=== PATIENT | male | born 1940 | race Caucasian/White ===

== ENCOUNTER → 2016-07-03 | Outpatient (CLI) | payer MEDICARE, OTHER ==
[~2016-07-03] MED LIST: ACETAMINOPHEN; ACETAMINOPHEN325 M2 PO; ADVAIR 250/501 EA INH; ADVAIR 500/501 E1 INH; ADVAIR DISKUS 51 DSK; AMBIEN10 M1 PO; AMBIEN10 MG PO; AMBIEN5 MG PO; ATIVAN0.5 MG PO; AUGMENTIN 875 M1 TA1 PO; BAYER ASPIRIN R81 MG PO; CARDIZEM CD300 MG PO; CLARITIN10 MG PO; COLACE100 MG PO; COREG6.25 MG PO; COUMADIN2.5 M1 PO; COUMADIN4 M1 PO; COZAAR50 M1 PO; CRESTOR5 MG PO; FEROSUL325 MG PO; FERROUS SULFAT325 MG PO; GABAPENTIN100 M2 PO; GLUCOPHAGE500 M1 PO; HYDROCHLOROTH12.5 MG; HYDROCODONE BIT1 T11 PO; IMDUR SA30 MG PO; IMDUR30 MG; ISOSORBIDE MONO60 MG; K-DUR; K-DUR 20MEQ20 MEQ PO; LASIX40 MG PO; LASIX80 MG PO; LEVAQUIN750 M1 PO; LEVOFLOXACIN500 MG PO; LIPITOR10 MG PO; LISINOPRIL10 MG PO; LISINOPRIL5 MG PO; LOPRESSOR25 MG PO; LOPRESSOR50 M1 PO; LOPRESSOR50 MG PO; METFORMIN; METFORMIN500 MG PO; METOPROLOL; METOPROLOL50 MG PO; MIRALAX17 GM/DOSE PO; MUCINEX600 MG PO; MULTIPLE VITAMI1 CAP PO; MULTIVITAMIN &1 TAB PO; Metolazone5 MG PO; NATURE'S BLEND F1 MG PO; NEURONTIN100 MG PO; NITROSTAT0.4 MG; NITROSTAT0.4 MG SL; OXYGEN; POTASSIUM CHLO10 ME4 PO; POTASSIUM CHLO20 ME3 PO; POTASSIUM20 MEQ PO; PREDNISONE10 MG PO; PRILOSEC20 MG PO; PROAIR HFA0.09 MG/AC; PROAIR HFA0.09 MG/AC IH; PROAIR HFA0.09 MG/AC INH; PROAIR HFA8.5 GM INH; SINGULAIR10 MG PO; SPIRIVA; SPIRIVA18 MCG INH; TOPROL XL25 MG PO; TOPROL XL50 MG PO; TYLOPHEN500 M2 PO; V C FORTE PO; VICODIN 5/500 505 MG PO; VITAMIN D PO; VITAMIN D50000 I2 PO; VITAMIN D50000 I3 PO; VITAMINS; ZETIA10 MG PO; ZOLPIDEM10 M1; Zaroxolyn,Diul2.5 MG PO
== END | disposition home or self-care (01) ==
LOC: RAD 15:23
DX: G47.00 Insomnia, unspecified (principal); R31.9 Hematuria, unspecified; M54.5 Low back pain; K59.09 Other constipation; E11.9 Type 2 diabetes mellitus without complications; I10 Essential (primary) hypertension; J43.9 Emphysema, unspecified; Z96.643 Presence of artificial hip joint, bilateral

== ENCOUNTER 2016-07-09 21:52 | Emergency (ER) | payer MEDICARE, OTHER ==
[~2016-07-09] VITALS: Ht 170.1 cm; Wt 91.6 kg
[2016-07-09 22:01] VITALS: BP 126/93
[2016-07-09 22:52] LABS: HEMATOCRIT 36.9 % (42.0-52.0); HEMOGLOBIN 11.7 g/dl (14.0-18.0); MEAN CELL VOLUME 79.7 fl (80.0-94.0); MEAN CORPUSCULAR HGB 25.3 pg (27.0-31.0); MEAN CORPUSCULAR HGB CONC 31.7 g/dl (33.0-37.0); MEAN PLATELET VOLUME 8.9 fl (9.6-12.3); PLATELET COUNT AUTOMATED 342 10*3/uL (130-400); RED BLOOD COUNT 4.63 10*6/uL (4.50-5.90); RED CELL DISTRI WIDTH 14.9 % (0-14.5); WHITE BLOOD COUNT 14.2 10*3/uL (4.8-10.8)
[2016-07-09 23:08] LABS: ALBUMIN 3.5 gm/dl (3.1-4.5); ALKALINE PHOSPHATASE 98 U/L (45-117); BILIRUBIN, TOTAL 0.7 mg/dl (0.2-1.0); BUN 16 mg/dl (7-24); CARBON DIOXIDE 28 mmol/L (21-32); CHLORIDE 97 mmol/L (98-107); EST GLOM FILT AFRICAN AMERICAN > 60 ml/min; GLUCOSE 100 mg/dL (65-99); POTASSIUM 4.3 mmol/L (3.5-5.1); SGOT/AST 23 IU/L (3-35); SGPT/ALT 29 U/L (12-78); SODIUM 136 mmol/L (136-145); TOTAL PROTEIN 7.4 gm/dL (6.4-8.2)
[2016-07-09 23:14] LABS: EOSINOPHIL # 0.4 10*3/uL (0-0.4); EOSINOPHILS 3 % (1-4); LYMPHOCYTE # 2.7 10*3/uL (1.3-4.4); MONOCYTE # 0.9 10*3/uL (0.1-1.0); NEUTROPHIL # 10.2 10*3/uL (2.3-7.9); NEUTROPHILS 72 % (47-73); PLATELET SUFFICIENCY NORMAL (NORMAL); TOTAL CELLS COUNTED 100 #CELLS
[2016-07-09 23:28] LABS: BILIRUBIN NEGATIVE (NEGATIVE); BLOOD TRACE-INTACT (NEGATIVE); CLARITY SL CLOUDY (CLEAR); COLOR YELLOW (YELLOW); GLUCOSE NEGATIVE (NEGATIVE); KETONE NEGATIVE (NEGATIVE); LEUKO ESTERASE NEGATIVE (NEGATIVE); NITRITE NEGATIVE (NEGATIVE); PH 5.5 (5.0-9.0); PROTEIN NEGATIVE (NEGATIVE); SPECIFIC GRAVITY 1.015 (1.005-1.030); UROBILINOGEN 0.2 E.U./dl (0.2-1.0)
[2016-07-09 23:36] LABS: WBC 0-2 wbc/hpf (0-5)
[2016-07-09 23:37] LABS: MUCOUS TRACE
[2016-07-09 23:38] LABS: URINE REFLEX COMMENT NO (NO)
== END 2016-07-10 01:19 | disposition home or self-care (01) ==
LOC: ED 21:52
PROVIDERS: Physician Assistant
DX: K59.00 Constipation, unspecified (principal); Z88.6 Allergy status to analgesic agent; Z79.82 Long term (current) use of aspirin; Z79.899 Other long term (current) drug therapy

== ENCOUNTER 2016-07-21 12:16 | Inpatient (IN) | payer MEDICARE, OTHER ==
[~2016-07-21] VITALS: Ht 170.1 cm; Wt 88.6 kg
--- NOTE | ~2016-07-21 | PR ---
[place], [place] PROGRESS NOTE NAME: JODIE BARCENAS JR [facility] #: [id number] UNIT #: [id number] ROOM: 407 DOCTOR: CLARIBEL HOOD MD,PARVEZ BIRTHDATE: [birth year] DOS: 07/24/2016 PULMONARY PROGRESS NOTE SUBJECTIVE: The patient was seen and examined on 07/24/2016. The patient has been sitting on the chair. The chest and the right side of the patient has been noted decreased gradually. He has not been reported with any symptoms of hemoptysis. The coughing has been noted for this patient with intermittent sputum expectoration. OBJECTIVE: VITAL SIGNS: For the patient, which has been recorded showed the temperature of the patient noted as normal. The respiratory rate of the patient recorded as 16-25, heart rate 70-100, blood pressure 166/86-185/99. Intake is 3600 mL, output 3400 mL, pulse oxygen saturation 5 liters nasal canula 92% saturation recorded. HEENT: Examination shows head was atraumatic. Eyes nonicterus. NECK: Supple. CARDIOVASCULAR: S1, S2 audible. LUNGS: The patient was noted with decreased breath sounds noted in the lower portion of the lungs bilaterally with questionable crackles. ABDOMEN: Soft, nontender. LABORATORY DATA: Sputum culture of the patient from 07/22/2016 shows normal quynh. Urine culture of the patient showed no bacterial growth. Chest x-ray done this morning shows bilateral pleural fluids were noted with basilar area of atelectasis. The fluid for the patient appeared to be greater on the left than the right side. IMPRESSION: The ultrasound of the chest was performed for the patient at the bedside. Small to moderate sized pleural fluid was noted in the left side and small right-sided pleural fluids were noted. The finding correlated with the current chest x-ray assessment. IMPRESSION: 1. The patient with acute on chronic hypoxic respiratory failure. 2. Acute bilateral bacterial pneumonia. 3. T10 atraumatic compression fracture. 4. The patient with acute exacerbation of chronic obstructive pulmonary disease. 5. Pleural fluid for the patient, most likely related to the current infection, pneumonia and possibility of congestive heart failure with fluid overload. PLAN OF TREATMENT: Conservative treatment for the patient at this time for the pleural fluid will be continued. Diuretic therapy for the patient will be given as Lasix. Monitor respiratory status closely. Continue antibiotics for this patient; however, the adjustment in antibiotic will be done with discontinuation of the vancomycin and Levaquin at this time because of the lack of any cultures supporting the use. Other supportive plan and management as well. Usual treatment, all other care. Further treatment changes will be done based on [place], [place] PROGRESS NOTE NAME: JODIE BARCENAS JR UNIT #: [id number] ROOM: 407 DOCTOR: CLARIBEL HOOD MD,PARVEZ BIRTHDATE: [birth year] progression of the illness. Conservative treatment initially for the pleural fluid will be done, if necessary, thoracentesis could be performed. In case of any progression of the pleural fluid and no response to the current treatment, diuretics. PARVEZ SANFORD MD CM:PNTRANS [id number] PARVEZ HOOD MD 07/25/16 0327 interface
--- NOTE | ~2016-07-21 | PR ---
[place], [place] PROGRESS NOTE NAME: JODIE BARCENAS JR [facility] #: [id number] UNIT #: [id number] ROOM: 407 DOCTOR: CLARIBEL HOOD MD,PARVEZ BIRTHDATE: [birth year] DOS: 07/27/2016 PULMONARY PROGRESS NOTE SUBJECTIVE: He has been noted comfortably sitting on the chair. Still complaining of some pain and spasm for the patient in the chest. The patient has been assessed by the surgery staff for the assessment of possibility of cholecystitis because of recent cholelithiasis noted. The patient denies any symptoms of chest pain. The patient noted with absence of chest pain at this time. He has been ordered a HIDA scan and the patient refused to get that done. He was not worried about the gallbladder and was also told by the surgeon that the gallbladder is not an issue at this time. The respiratory symptom harrison, the patient has been noted with gradual reduction in symptoms of shortness of breath. Denies symptoms of cough. OBJECTIVE: VITAL SIGNS: Shows a normal temperature, respiratory rate 20, heart rate 100, blood pressure 155/88. Pulse oxygen saturation of the patient recorded on 5 liters nasal cannula 92% saturation. Intake was 1300, the output was 3900 mL, negative 2.63 liters was noted. HEENT: Examination shows head was atraumatic. Eyes nonicterus. NECK: Supple. CARDIOVASCULAR: S1, S2 is audible. LUNGS: The patient was noted without any wheezing or crackles at the present time. Breath sounds still noted decreased in the lower portion of the lungs, but some improvement in air entry was noted. ABDOMEN: Soft and nontender. LABORATORY DATA: CBC this morning, WBC count 13.0, hemoglobin 11.4, hematocrit 37.0, platelet count 428,000. BMP of the patient this morning was noted normal BUN and creatinine. IMPRESSION: 1. The patient with gradual reduction and resolution of the acute on chronic hypoxic respiratory failure. 2. The patient with resolving acute exacerbation of chronic obstructive pulmonary disease as well. 3. Bilateral pleural fluid for the patient, which has been noted with gradual resolution. 4. T10 atraumatic compression fracture causing the current chest pain. PLAN OF TREATMENT: Continue diuretic, bronchodilators, monitoring the chest x-ray of the patient as well. Continue oxygen supplementation to maintain a saturation of 92% greater as well. Continue use of the CPAP from home settings for medical management of obstructive sleep apnea disorder or BiPAP from the hospital use. Repeat chest x-ray of the patient has been ordered to be done in the morning for reassessment of the pleural fluid and the resolving pulmonary infiltration. Continue anticoagulation for the patient as well. Electrolytes as well as BUN and creatinine. [place], [place] PROGRESS NOTE NAME: JODIE BARCENAS JR UNIT #: [id number] ROOM: 407 DOCTOR: PARVEZ BURKS MD BIRTHDATE: [birth year] PARVEZ SANFORD MD CM:PNVIRAL [id number] PARVEZ HOOD MD 07/28/16 0841 interface
--- NOTE | ~2016-07-21 | PR ---
[place], [place] PROGRESS NOTE NAME: JODIE BARCENAS JR UNIT #: [id number] ROOM: 407 DOCTOR: PARVEZ BURKS MD BIRTHDATE: [birth year] DOS: 07/25/2016 PULMONARY PROGRESS NOTE SUBJECTIVE: The patient has been noted comfortable at this time, sitting on the chair. Denies symptoms of chest pain or any abdominal pain. The patient has been continued on diuretic therapy from yesterday. Shortness of breath is improving. The coughing is resolving. Chest pain was noted better controlled. OBJECTIVE: VITAL SIGNS: Showed normal temperature, respiratory rate of 20, heart rate of 98, blood pressure 153/95. HEENT: Examination shows no acute change. NECK: Supple. CARDIOVASCULAR SYSTEM: S1, S2 is audible. LUNGS: The patient was noted without any wheezing or crackles at the present time. ABDOMEN: Soft and nontender. LABORATORY DATA: CBC today show WBC count 13.2, hemoglobin 12.4, hematocrit 39.2, platelet count was normal. The CMP for the patient was noted, glucose 128, BUN and creatinine was normal. Potassium 3.2. IMPRESSION: 1. Bilateral pleural fluid for the patient. 2. Hypokalemia. 3. Acute bacterial pneumonia. 4. Acute on chronic hypoxic respiratory failure with exacerbation of chronic obstructive pulmonary disease. 5. T12 compression fracture. PLAN OF TREATMENT: The patient has been given an extra dose of potassium supplement 40 mEq today. He will be continued on other previous treatment and plan of management. Usual care. Supportive therapy and plan of care as in progress. Repeat chest x-ray in the morning for the patient for reassessment of the pleural fluid. Ultrasound of the chest will be also performed if necessary to reassess the pleural fluid. Usual care. Other plan of management and therapies. Further treatment changes will be done based on the progression of the illness. [place], [place] PROGRESS NOTE NAME: JODIE BARCENAS JR UNIT #: [id number] ROOM: 407 DOCTOR: PARVEZ BURKS MD BIRTHDATE: [birth year] PARVEZ SANFORD MD CM:HERNANDEZ Lopez: 07/25/16 [id number] [id number] PARVEZ HOOD MD 07/26/16 0147 interface
--- NOTE | ~2016-07-21 | PR ---
[place], [place] PROGRESS NOTE NAME: JODIE BARCENAS JR [facility] #: [id number] UNIT #: [id number] ROOM: 407 DOCTOR: CLARIBEL HOOD MD,PARVEZ BIRTHDATE: [birth year] DOS: 07/26/2016 PULMONARY FOLLOWUP NOTE SUBJECTIVE: He has been noted with reduction in symptoms of shortness of breath, was complaining of cough, which has been noted mild to moderate with minimal sputum expectoration, complaining of pain under ribcage for this patient with coughing at times. He denies symptoms of abdominal pain, nausea or vomiting. OBJECTIVE: VITAL SIGNS: For the patient, which has been recorded shows the temperature of the patient noted as normal, respiratory rate 20, heart rate of 99, blood pressure 162/89-142/69. Intake for the patient was recorded as ____. The pulse oxygen saturation of the patient was noted as 91% to 92% on 5 L nasal cannula. HEENT: Examination shows no acute change. NECK: Supple. CARDIOVASCULAR: S1, S2 audible. LUNGS: Noted without any wheezing or crackles at the present time. The breath sounds noted somewhat decreased in the lower portion of the lungs. ABDOMEN: Soft and nontender. LABORATORY DATA: CBC of this morning, WBC count 13.8, hemoglobin 11.5, hematocrit 37.2 and platelet count of 407,000. The BMP for this patient this morning noted as normal BMP. The chest x-ray of the patient that was done this morning was personally reviewed shows resolving pleural fluid of the patient noted in the lungs bilaterally with significant reduction noted in left lung with improving aeration of the lungs. IMPRESSION: 1. The patient who has been currently treated for the medical management of acute bilateral pneumonia with acute on chronic hypercapnic/hypoxic respiratory failure, pleural fluids bilaterally, partially reduced, but not completely resolved for this patient. 2. Mild leukocytosis as well. 3. T10 atraumatic compression fracture of the spine with the back pain and muscle spasm. PLAN OF TREATMENT: Continue the current plan of management as in progress. The patient is responding to treatment. Continue oxygen supplementation to maintain a saturation with 92% or greater. Continue CPAP from the home settings. Other supportive therapy, plan of management and care. Usual treatment, other supportive plan and management and care. [place], [place] PROGRESS NOTE NAME: JODIE BARCENAS JR UNIT #: [id number] ROOM: 407 DOCTOR: PARVEZ BURKS MD BIRTHDATE: [birth year] PARVEZ SANFORD MD CM:PNVIRAL [id number] PARVEZ HOOD MD 07/27/16 0211 interface
--- NOTE | ~2016-07-21 | PR ---
[place], [place] PROGRESS NOTE NAME: JODIE BARCENAS JR UNIT #: [id number] ROOM: 407 DOCTOR: CLARIBEL HOOD MDPARVEZ BIRTHDATE: [birth year] DOS: 07/28/2016 PULMONARY FOLLOWUP SUBJECTIVE: The patient reported reduction in respiratory symptoms of coughing, shortness breath. Denies symptoms of chest pain. Denies abdominal pain, currently noted with the patient sitting on the chair this morning. OBJECTIVE: VITAL SIGNS: For the patient which has been recorded shows his temperature was noted as normal. The respiratory rate of the patient recorded as 18-21, heart rate of 89-75, blood pressure 111/73-153/70. Intake is 1600 mL, output 1500 mL recorded. Pulse oxygen saturation on 5 L nasal cannula was 95% saturation. HEENT: Examination shows head was atraumatic. Eyes nonicterus. CARDIOVASCULAR: S1, S2 is audible. LUNGS: The patient was noted with improving air entry of the lung with minimal crackles in the lung bases are noted bilaterally. ABDOMEN: Soft, nontender. EXTREMITIES: No edema. LABORATORY DATA: The patient's CBC this morning, WBC count 12.2, hemoglobin 11.6, hematocrit of 38.5. The platelet count was noted as 455,000, which was elevated. Chest x-ray of the patient that was done this morning, PA lateral view for the patient was reviewed personally, and it shows reduction of the infiltration. Improvement in the aeration of the patient was continued significantly as compared with the previous chest x-ray; however, the infiltration was still noted in the left lower lobe for the patient in the retrocardiac area not completely resolved, but certainly appeared to be decreased. IMPRESSION: 1. The patient with resolving acute respiratory failure. The patient with pleural fluid still noted with incomplete resolution and resolving acute pneumonia. 2. Acute on chronic hypoxic respiratory failure as well. 3. History of T10 compression fracture. PLAN OF TREATMENT: Continue current medical management of the patient as previously in progress without any changes. All other supportive therapy, plan and management as well. Usual care. Supportive care and plan of treatment as well. Usual treatment. [place], [place] PROGRESS NOTE NAME: JODIE BARCENAS JR UNIT #: [id number] ROOM: 407 DOCTOR: PARVEZ BURKS MD BIRTHDATE: [birth year] PARVEZ SANFORD MD CM:PNTRANS [phone] PARVEZ HOOD MD 07/29/16 015 interface
--- NOTE | ~2016-07-21 | PR ---
[place], [place] PROGRESS NOTE NAME: JODIE BARCENAS JR [facility] #: [id number] UNIT #: [id number] ROOM: [facility] DOCTOR: CLARIBEL HOOD MD,PARVEZ BIRTHDATE: [birth year] DOS: 07/23/2016 PULMONARY PROGRESS NOTE SUBJECTIVE: The patient was seen and examined on 07/23/2016. He has been noted with reduction of the chest pain of the patient using the heating pad. The ultrasound for this patient of the right upper quadrant was noted for this patient with cholelithiasis, without any evidence of acute cholecystitis. The patient denies any symptoms of hemoptysis. He has been noted with the cough with sputum expectoration. This morning, as the patient was seen, he was sitting on the chair. He has been continued on antibiotics and remains afebrile. OBJECTIVE: VITAL SIGNS: Showed normal temperature, respiratory rate of 20-22, heart rate 90-84, blood pressure ____. The pulse oxygen saturation of patient noted as 92% on 5 L nasal cannula. HEENT: Examination shows no acute change. NECK: Supple. CARDIOVASCULAR SYSTEM: S1, S2 audible. LUNGS: Noted with basilar crackles of the lungs. ABDOMEN: Soft, nontender. LABORATORY DATA: Ultrasound of the right upper quadrant for the patient was noted with cholelithiasis. The blood culture of the patient on showed no bacterial growth. Final culture results were pending. Gram stain of the sputum for the patient from yesterday, moderate white blood cells with few epithelial cells, gram-positive cocci, and budding yeast. Urine culture, no bacterial growth from the 7th. The CMP this morning, normal BUN and creatinine. The remaining electrolytes grossly normal. CBC on 07/23/2016, WBC count 14.3, hemoglobin 11.1, hematocrit 35.8, and platelet count of 417,000. IMPRESSION: 1. The patient with acute bilateral basilar pneumonia with [id number] hypoxic respiratory failure. 2. T10 compression fracture, atraumatic for this patient was noted as well. 3. The patient with history of coronary artery disease and other problems as well. 4. History of gastroesophageal reflux. PLAN OF TREATMENT: Continue current combination of pain medical management. Continue antibiotics, bronchodilators, monitor culture results of the sputum. Periodic monitoring chest x-ray as well to assess the progression of the pneumonia. Usual care. Other supportive therapy, plan of management. [place], [place] PROGRESS NOTE NAME: JODIE BARCENAS JR UNIT #: [id number] ROOM: [facility] DOCTOR: PARVEZ BURKS MD BIRTHDATE: [birth year] PARVEZ SANFORD MD CM:HERNANDEZ [id number] PARVEZ HOOD MD 07/24/16 1024 interface
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
--- NOTE | ~2016-07-21 | EKG ---
[place], [place] ELECTROCARDIOGRAM REPORT NAME: JODIE BARCENAS JR UNIT #: [id number] ROOM: 407 DOCTOR: UMANG ELDER MD BIRTHDATE: [birth year] DOS: 07/21/2016 TIME: 1242. FINDINGS: 1. Sinus tachycardia with heart rate of about 140. 2. Rightward axis. 3. Prolonged QT interval. 4. Abnormal electrocardiogram. UMANG ELDER MD CM:EKGRPT:ELECTROCARDIOGRAM REPORT [id number] 15 UMANG ELDER MD
--- NOTE | ~2016-07-21 | PR ---
[place], [place] PROGRESS NOTE NAME: JODIE BARCENAS JR [facility] #: [id number] UNIT #: [id number] ROOM: [facility] DOCTOR: CARLOS MANUEL HU MD BIRTHDATE: [birth year] DOS: 07/23/2016 SUBJECTIVE: The patient who has been admitted to the hospital with the community-acquired pneumonia. He is still having a lot of pain and difficulty in breathing. His blood culture and sensitivity did not grow any bacteria. Sputum culture and sensitivity grew normal quynh. Urine culture and sensitivity showed no bacteria. Ultrasound of the gallbladder shows the patient is having cholelithiasis without evidence of cholecystitis. MRSA is negative and his CBC today showed white count 14,300, hemoglobin 11.1, hematocrit is 35.8. Comprehensive metabolic profile is showing chloride 108, calcium 8.1, albumin 2.6, other values are normal. OBJECTIVE: VITAL SIGNS: His blood pressure is 156/79, pulse is 90, respirations , temperature 98.8. HEART: Regular. CHEST: Having few rhonchi with the crepitation. ABDOMEN: Soft. Rest of examination unremarkable. CARLOS MANUEL HU MD CM:PNTRANS [id number] CARLOS MANUEL HU MD 07/24/16 0119 interface
[2016-07-21 12:19] VITALS: BP 139/98
[2016-07-21 12:53] LABS: HEMATOCRIT 39.6 % (42.0-52.0); HEMOGLOBIN 12.4 g/dl (14.0-18.0); MEAN CELL VOLUME 80.2 fl (80.0-94.0); MEAN CORPUSCULAR HGB 25.1 pg (27.0-31.0); MEAN CORPUSCULAR HGB CONC 31.3 g/dl (33.0-37.0); MEAN PLATELET VOLUME 8.7 fl (9.6-12.3); PLATELET COUNT AUTOMATED 395 10*3/uL (130-400); RED BLOOD COUNT 4.94 10*6/uL (4.50-5.90); RED CELL DISTRI WIDTH 15.4 % (0-14.5); WHITE BLOOD COUNT 19.4 10*3/uL (4.8-10.8)
[2016-07-21 13:02] LABS: INTERNATIONAL NORM RATIO 1.2 (2.0-3.5); PROTHROMBIN TIME 12.6 SECONDS (9.0-12.4)
[2016-07-21 13:07] LABS: ABG BASE EXCESS -0.4 mmol/L (-2.0-2.0); ABG CO2 CONTENT 22.6 mmol/L (23-27); ABG HCO3 21.7 mmol/l (22-26); ABG TEMPERATURE 102.3 F (98.0-99.0); ARTERIAL BLOOD GAS PH 7.453 (7.35-7.45); ARTERIAL BLOOD GAS PO2 58.2 mmHg (80-90)
[2016-07-21 13:09] LABS: ALBUMIN 3.4 gm/dl (3.1-4.5); ALKALINE PHOSPHATASE 141 U/L (45-117); BILIRUBIN, TOTAL 1.4 mg/dl (0.2-1.0); BUN 11 mg/dl (7-24); CARBON DIOXIDE 27 mmol/L (21-32); CHLORIDE 98 mmol/L (98-107); CKMB 0.9 ng/ml (0.5-3.6); CPK 65 U/L (39-308); EST GLOM FILT AFRICAN AMERICAN > 60 ml/min; GLUCOSE 158 mg/dL (65-99); MAGNESIUM 2.1 mg/dL (1.5-2.1); POTASSIUM 4.2 mmol/L (3.5-5.1); SGOT/AST 15 IU/L (3-35); SGPT/ALT 21 U/L (12-78); SODIUM 135 mmol/L (136-145); TOTAL PROTEIN 7.9 gm/dL (6.4-8.2)
[2016-07-21 13:10] LABS: TROPONIN I < 0.015 ng/ml (<0.045)
[2016-07-21 13:14] LABS: LYMPHOCYTE # 0.6 10*3/uL (1.3-4.4); MONOCYTE # 0.8 10*3/uL (0.1-1.0); NEUTROPHILS 93 % (47-73); PLATELET SUFFICIENCY NORMAL (NORMAL); POLYCHROMASIA SLIGHT; TOTAL CELLS COUNTED 100 #CELLS
[2016-07-21 16:32] VITALS: BP 131/74
[2016-07-21 17:00] VITALS: BP 154/82
[2016-07-21] MEDS ORDERED: LIPITOR10 MG PO (19:59)
[2016-07-21 20:00] VITALS: BP 146/79
[2016-07-21] MEDS ORDERED: NEURONTIN300 MG PO (20:02)
[2016-07-21] MEDS ORDERED: COZAAR50 M1 PO (20:03)
[2016-07-21] MEDS ORDERED: OXYGEN NAS (20:15)
[2016-07-21] MEDS ORDERED: ONE DAILY FOR1 EAC2 PO (20:16)
[2016-07-21] MEDS ORDERED: LEVEMIR10 ML SC (20:23)
[2016-07-21 21:37] LABS: BILIRUBIN NEGATIVE (NEGATIVE); BLOOD TRACE-LYSED (NEGATIVE); CLARITY SL CLOUDY (CLEAR); COLOR YELLOW (YELLOW); GLUCOSE 2+ (NEGATIVE); KETONE 1+ (NEGATIVE); LEUKO ESTERASE NEGATIVE (NEGATIVE); NITRITE NEGATIVE (NEGATIVE); PROTEIN NEGATIVE (NEGATIVE); SPECIFIC GRAVITY <= 1.005 (1.005-1.030); UROBILINOGEN 0.2 E.U./dl (0.2-1.0)
[2016-07-21 21:43] LABS: BACTERIA 2+; EPITHELIAL CELLS 0-2; RBC 0-2 rbc/hpf (0-2); URINE REFLEX COMMENT YES (NO)
[2016-07-22] VITALS: BP 139/77
[2016-07-22 04:00] VITALS: BP 137/80
[2016-07-22 05:06] LABS: BASO % 0.1 % (0.0-1.0); HEMATOCRIT 35.4 % (42.0-52.0); IG # 0.3 10*3/uL (0.0-0.1); LYMPH # 1.1 10*3/uL (1.3-4.4); LYMPH % 6.4 % (27.0-41.0); MEAN CELL VOLUME 80.8 fl (80.0-94.0); MEAN CORPUSCULAR HGB 25.1 pg (27.0-31.0); MEAN CORPUSCULAR HGB CONC 31.1 g/dl (33.0-37.0); MEAN PLATELET VOLUME 9.1 fl (9.6-12.3); MONO # 1.1 10*3/uL (0.1-1.0); MONO % 6.2 % (3.0-9.0); NEUT # 14.7 10*3/uL (2.3-7.9); NEUT % 85.7 % (47.0-73.0); PLATELET COUNT AUTOMATED 336 10*3/uL (130-400); RED BLOOD COUNT 4.38 10*6/uL (4.50-5.90); RED CELL DISTRI WIDTH 15.1 % (0-14.5); WHITE BLOOD COUNT 17.2 10*3/uL (4.8-10.8)
[2016-07-22 05:15] LABS: MAGNESIUM 2.4 mg/dL (1.5-2.1); PHOSPHOROUS 2.5 mg/dL (2.5-4.9)
[2016-07-22 05:19] LABS: ALBUMIN 2.6 gm/dl (3.1-4.5); ALKALINE PHOSPHATASE 110 U/L (45-117); BILIRUBIN, TOTAL 0.8 mg/dl (0.2-1.0); BUN 12 mg/dl (7-24); CARBON DIOXIDE 25 mmol/L (21-32); CHLORIDE 106 mmol/L (98-107); EST GLOM FILT AFRICAN AMERICAN > 60 ml/min; GLUCOSE 168 mg/dL (65-99); POTASSIUM 3.7 mmol/L (3.5-5.1); SGOT/AST 10 IU/L (3-35); SGPT/ALT 15 U/L (12-78); SODIUM 140 mmol/L (136-145); TOTAL PROTEIN 6.6 gm/dL (6.4-8.2)
[2016-07-22 08:00] VITALS: BP 157/83
[2016-07-22 12:00] VITALS: BP 168/78
[2016-07-22 16:00] VITALS: BP 130/65
[2016-07-22 20:00] VITALS: BP 130/73
[2016-07-23] VITALS: BP 115/66
[2016-07-23 04:00] VITALS: BP 156/79
[2016-07-23 06:07] LABS: BASO % 0.1 % (0.0-1.0); EOS % 0.1 % (1.0-4.0); HEMATOCRIT 35.8 % (42.0-52.0); HEMOGLOBIN 11.1 g/dl (14.0-18.0); IG # 0.2 10*3/uL (0.0-0.1); LYMPH # 1.9 10*3/uL (1.3-4.4); LYMPH % 13.2 % (27.0-41.0); MEAN CELL VOLUME 81.9 fl (80.0-94.0); MEAN CORPUSCULAR HGB 25.4 pg (27.0-31.0); MEAN PLATELET VOLUME 9.2 fl (9.6-12.3); MONO # 1.2 10*3/uL (0.1-1.0); MONO % 8.1 % (3.0-9.0); NEUT # 11.1 10*3/uL (2.3-7.9); NEUT % 77.5 % (47.0-73.0); PLATELET COUNT AUTOMATED 417 10*3/uL (130-400); RED BLOOD COUNT 4.37 10*6/uL (4.50-5.90); RED CELL DISTRI WIDTH 15.3 % (0-14.5); WHITE BLOOD COUNT 14.3 10*3/uL (4.8-10.8)
[2016-07-23 06:20] LABS: ALBUMIN 2.6 gm/dl (3.1-4.5); ALKALINE PHOSPHATASE 107 U/L (45-117); BILIRUBIN, TOTAL 0.7 mg/dl (0.2-1.0); BUN 16 mg/dl (7-24); CARBON DIOXIDE 26 mmol/L (21-32); CHLORIDE 108 mmol/L (98-107); EST GLOM FILT AFRICAN AMERICAN > 60 ml/min; GLUCOSE 99 mg/dL (65-99); POTASSIUM 3.5 mmol/L (3.5-5.1); SGOT/AST 24 IU/L (3-35); SGPT/ALT 25 U/L (12-78); SODIUM 143 mmol/L (136-145); TOTAL PROTEIN 6.5 gm/dL (6.4-8.2)
[2016-07-23 08:00] VITALS: BP 156/79
[2016-07-23 12:00] VITALS: BP 125/71
[2016-07-23 16:00] VITALS: BP 160/81
[2016-07-23 20:00] VITALS: BP 166/82
[2016-07-24] VITALS: BP 147/85
[2016-07-24 04:00] VITALS: BP 166/86
[2016-07-24 08:00] VITALS: BP 185/99
[2016-07-24 12:00] VITALS: BP 120/58
[2016-07-24 16:00] VITALS: BP 115/87
[2016-07-24 20:00] VITALS: BP 154/77
[2016-07-25] VITALS: BP 120/70
[2016-07-25 06:39] LABS: HEMATOCRIT 39.2 % (42.0-52.0); HEMOGLOBIN 12.4 g/dl (14.0-18.0); MEAN CELL VOLUME 80.2 fl (80.0-94.0); MEAN CORPUSCULAR HGB 25.4 pg (27.0-31.0); MEAN CORPUSCULAR HGB CONC 31.6 g/dl (33.0-37.0); MEAN PLATELET VOLUME 8.7 fl (9.6-12.3); PLATELET COUNT AUTOMATED 458 10*3/uL (130-400); RED BLOOD COUNT 4.89 10*6/uL (4.50-5.90); RED CELL DISTRI WIDTH 15.2 % (0-14.5); WHITE BLOOD COUNT 13.3 10*3/uL (4.8-10.8)
[2016-07-25 06:49] LABS: HYPOCHROMIA SLIGHT; OVALOCYTES FEW; PLATELET SUFFICIENCY HIGH (NORMAL); POLYCHROMASIA SLIGHT
[2016-07-25 06:57] LABS: EOSINOPHIL # 0.1 10*3/uL (0-0.4); EOSINOPHILS 1 % (1-4); LYMPHOCYTE # 2.8 10*3/uL (1.3-4.4); MONOCYTE # 1.2 10*3/uL (0.1-1.0); MYELOCYTES 3 % (0-0); NEUTROPHIL # 8.8 10*3/uL (2.3-7.9); NEUTROPHILS 66 % (47-73); TOTAL CELLS COUNTED 100 #CELLS
[2016-07-25 07:11] LABS: ALBUMIN 2.8 gm/dl (3.1-4.5); CHLORIDE 106 mmol/L (98-107); POTASSIUM 3.2 mmol/L (3.5-5.1); SODIUM 140 mmol/L (136-145)
[2016-07-25 07:16] LABS: ALKALINE PHOSPHATASE 131 U/L (45-117); BILIRUBIN, TOTAL 0.6 mg/dl (0.2-1.0); BUN 13 mg/dl (7-24); CARBON DIOXIDE 28 mmol/L (21-32); EST GLOM FILT AFRICAN AMERICAN > 60 ml/min; GLUCOSE 128 mg/dL (65-99); SGOT/AST 21 IU/L (3-35); SGPT/ALT 34 U/L (12-78); TOTAL PROTEIN 7.1 gm/dL (6.4-8.2)
[2016-07-25 08:00] VITALS: BP 153/65
[2016-07-25 12:00] VITALS: BP 125/77
[2016-07-25 16:00] VITALS: BP 126/74
[2016-07-25 20:00] VITALS: BP 141/65
[2016-07-26] VITALS: BP 142/69
[2016-07-26 06:15] LABS: HEMATOCRIT 37.3 % (42.0-52.0); HEMOGLOBIN 11.5 g/dl (14.0-18.0); MEAN CELL VOLUME 80.9 fl (80.0-94.0); MEAN CORPUSCULAR HGB 24.9 pg (27.0-31.0); MEAN CORPUSCULAR HGB CONC 30.8 g/dl (33.0-37.0); MEAN PLATELET VOLUME 8.9 fl (9.6-12.3); PLATELET COUNT AUTOMATED 407 10*3/uL (130-400); RED BLOOD COUNT 4.61 10*6/uL (4.50-5.90); RED CELL DISTRI WIDTH 15.5 % (0-14.5)
[2016-07-26 06:47] LABS: BUN 12 mg/dl (7-24); CARBON DIOXIDE 28 mmol/L (21-32); CHLORIDE 108 mmol/L (98-107); EST GLOM FILT AFRICAN AMERICAN > 60 ml/min; GLUCOSE 98 mg/dL (65-99); POTASSIUM 3.9 mmol/L (3.5-5.1); SODIUM 142 mmol/L (136-145)
[2016-07-26 07:37] LABS: ATYPICAL LYMPHS 1 % (0-0); BASOPHIL # 0.1 10*3/uL (0-0.1); BASOPHILS 1 % (0-1); EOSINOPHIL # 0.3 10*3/uL (0-0.4); EOSINOPHILS 2 % (1-4); LYMPHOCYTE # 2.9 10*3/uL (1.3-4.4); MYELOCYTES 1 % (0-0); NEUTROPHIL # 8.6 10*3/uL (2.3-7.9); NEUTROPHILS 66 % (47-73); PLATELET SUFFICIENCY HIGH (NORMAL); POLYCHROMASIA SLIGHT; TOTAL CELLS COUNTED 100 #CELLS
[2016-07-26 08:00] VITALS: BP 162/89
[2016-07-26 12:00] VITALS: BP 132/83
[2016-07-26 16:00] VITALS: BP 128/73
[2016-07-26 20:00] VITALS: BP 138/62
[2016-07-27] VITALS: BP 138/65
[2016-07-27 06:48] LABS: HEMOGLOBIN 11.4 g/dl (14.0-18.0); MEAN CELL VOLUME 80.6 fl (80.0-94.0); MEAN CORPUSCULAR HGB 24.8 pg (27.0-31.0); MEAN CORPUSCULAR HGB CONC 30.8 g/dl (33.0-37.0); MEAN PLATELET VOLUME 8.6 fl (9.6-12.3); PLATELET COUNT AUTOMATED 428 10*3/uL (130-400); RED BLOOD COUNT 4.59 10*6/uL (4.50-5.90); RED CELL DISTRI WIDTH 15.4 % (0-14.5)
[2016-07-27 07:10] LABS: BUN 12 mg/dl (7-24); CARBON DIOXIDE 28 mmol/L (21-32); CHLORIDE 107 mmol/L (98-107); EST GLOM FILT AFRICAN AMERICAN > 60 ml/min; GLUCOSE 96 mg/dL (65-99); SODIUM 142 mmol/L (136-145)
[2016-07-27 07:14] LABS: ATYPICAL LYMPHS 1 % (0-0); EOSINOPHIL # 0.1 10*3/uL (0-0.4); EOSINOPHILS 1 % (1-4); LYMPHOCYTE # 2.6 10*3/uL (1.3-4.4); METAMYELOCYTES 1 % (0-0); MONOCYTE # 0.7 10*3/uL (0.1-1.0); MYELOCYTES 1 % (0-0); NEUTROPHIL # 9.4 10*3/uL (2.3-7.9); NEUTROPHILS 72 % (47-73); PLATELET SUFFICIENCY HIGH (NORMAL); TOTAL CELLS COUNTED 100 #CELLS
[2016-07-27 08:00] VITALS: BP 155/88
[2016-07-27 16:00] VITALS: BP 145/79
[2016-07-27 20:00] VITALS: BP 120/66
[2016-07-28] VITALS: BP 111/73
[2016-07-28 06:20] LABS: HEMATOCRIT 38.5 % (42.0-52.0); HEMOGLOBIN 11.6 g/dl (14.0-18.0); MEAN CELL VOLUME 81.1 fl (80.0-94.0); MEAN CORPUSCULAR HGB 24.4 pg (27.0-31.0); MEAN CORPUSCULAR HGB CONC 30.1 g/dl (33.0-37.0); MEAN PLATELET VOLUME 9.1 fl (9.6-12.3); PLATELET COUNT AUTOMATED 455 10*3/uL (130-400); RED BLOOD COUNT 4.75 10*6/uL (4.50-5.90); RED CELL DISTRI WIDTH 15.2 % (0-14.5); WHITE BLOOD COUNT 12.2 10*3/uL (4.8-10.8)
[2016-07-28 07:01] LABS: BASOPHIL # 0.1 10*3/uL (0-0.1); BASOPHILS 1 % (0-1); LYMPHOCYTE # 2.9 10*3/uL (1.3-4.4); METAMYELOCYTES 1 % (0-0); MYELOCYTES 1 % (0-0); NEUTROPHIL # 7.9 10*3/uL (2.3-7.9); NEUTROPHILS 65 % (47-73); TOTAL CELLS COUNTED 100 #CELLS
[2016-07-28 07:02] LABS: BURR CELLS FEW; PLATELET SUFFICIENCY HIGH (NORMAL)
[2016-07-28 08:00] VITALS: BP 153/70
[2016-07-28 12:00] VITALS: BP 114/63
[2016-07-28] MEDS ORDERED: CYCLOBENZAPRINE10 MG PO (13:41)
[2016-07-28] MEDS ORDERED: ACETAMINOPHEN-H1 TA2 PO (13:41)
[2016-07-28] MEDS ORDERED: PREDNISONE10 MG PO (13:41)
[2016-07-28] MEDS ORDERED: LEVAQUIN750 M1 PO (13:41)
== END 2016-07-28 16:10 | disposition home or self-care (01) | DRG 871 ==
LOC: ED 12:16 → ICCU 15:39 → EDHOLD 15:39 → ICCU 15:58 → 4E 07-24 14:28
PROVIDERS: Emergency Medicine; Internal Medicine
DX: A41.9 Sepsis, unspecified organism (principal); J69.0 Pneumonitis due to inhalation of food and vomit; J96.21 Acute and chronic respiratory failure with hypoxia; E44.0 Moderate protein-calorie malnutrition; J90 Pleural effusion, not elsewhere classified; J44.1 Chronic obstructive pulmonary disease with (acute) exacerbation; J44.0 Chronic obstructive pulmonary disease with (acute) lower respiratory infection; M48.54XA Collapsed vertebra, not elsewhere classified, thoracic region, initial encounter for fracture; R65.20 Severe sepsis without septic shock; N18.3 Chronic kidney disease, stage 3 (moderate); E11.22 Type 2 diabetes mellitus with diabetic chronic kidney disease; E11.65 Type 2 diabetes mellitus with hyperglycemia; D64.9 Anemia, unspecified; K80.80 Other cholelithiasis without obstruction; I25.10 Atherosclerotic heart disease of native coronary artery without angina pectoris; K21.9 Gastro-esophageal reflux disease without esophagitis; E78.5 Hyperlipidemia, unspecified; I12.9 Hypertensive chronic kidney disease with stage 1 through stage 4 chronic kidney disease, or unspecified chronic kidney disease; Z96.643 Presence of artificial hip joint, bilateral; E87.6 Hypokalemia; I25.5 Ischemic cardiomyopathy; E66.8 Other obesity; Z95.1 Presence of aortocoronary bypass graft; Z82.49 Family history of ischemic heart disease and other diseases of the circulatory system; Z88.5 Allergy status to narcotic agent; Z79.899 Other long term (current) drug therapy; Z83.3 Family history of diabetes mellitus; Z68.31 Body mass index [BMI] 31.0-31.9, adult; Z87.891 Personal history of nicotine dependence

== ENCOUNTER → 2016-07-31 | Outpatient (CLI) | payer MEDICARE, OTHER ==
[~2016-07-31] MED LIST changes: +ACETAMINOPHEN-H1 TA2 PO; +CYCLOBENZAPRINE10 MG PO; +LEVEMIR10 ML SC; +NEURONTIN300 MG PO; +ONE DAILY FOR1 EAC2 PO; +OXYGEN NAS
== END | disposition home or self-care (01) ==
LOC: RAD 12:51
DX: J44.9 Chronic obstructive pulmonary disease, unspecified (principal); J18.9 Pneumonia, unspecified organism; J90 Pleural effusion, not elsewhere classified

== ENCOUNTER → 2016-08-07 | Outpatient (CLI) | payer MEDICARE, OTHER | END | disposition home or self-care (01) | LOC: RAD 01:57 | DX: M48.50XA Collapsed vertebra, not elsewhere classified, site unspecified, initial encounter for fracture (principal) ==

== ENCOUNTER → 2016-08-18 | Outpatient (CLI) | payer MEDICARE, OTHER ==
[~2016-08-18] MED LIST changes: +PRILOSEC20 M1 PO
--- NOTE | ~2016-08-18 | ST ---
[place], [place] EXERCISE STRESS TEST REPORT NAME: JODIE BARCENAS JR [facility] #: [id number] UNIT #: [id number] ROOM: DOCTOR: BHUMI MONREAL MD BIRTHDATE: [birth year] DOS: 08/18/2016 LEXISCAN STRESS EKG REFERRING PHYSICIAN: Dr. Lazaro Adler INDICATION: Chest pain, shortness of breath, CAD, preop. The patient underwent standard protocol Lexiscan stress EKG. The patient's baseline EKG showed normal sinus rhythm, nonspecific ST-T wave changes and PVCs. The patient's baseline heart rate was 85 with a blood pressure of 140/98. The patient's peak heart rate was 115 with a blood pressure of 118/60. The patient had no chest pain, no shortness of breath and no inducible ischemic changes. SUMMARY OF FINDINGS: Unremarkable Lexiscan stress EKG. Please see separate report for perfusion scan results. BHUMI MONREAL MD CM:STRESS:EXERCISE STRESS TEST REPORT [id number] BHUMI MONREAL MD
== END | disposition home or self-care (01) ==
LOC: CARD 02:44
DX: Z01.810 Encounter for preprocedural cardiovascular examination (principal); R06.02 Shortness of breath; I25.10 Atherosclerotic heart disease of native coronary artery without angina pectoris; J44.9 Chronic obstructive pulmonary disease, unspecified; E11.9 Type 2 diabetes mellitus without complications; E78.01 Familial hypercholesterolemia; I10 Essential (primary) hypertension

== ENCOUNTER → 2016-11-14 | Outpatient (CLI) | payer MEDICARE, OTHER | END | disposition home or self-care (01) | LOC: US 02:20 | DX: K80.20 Calculus of gallbladder without cholecystitis without obstruction (principal) ==

== ENCOUNTER → 2017-04-13 | Outpatient (CLI) | payer MEDICARE, OTHER | END | disposition home or self-care (01) | LOC: US 14:04 | DX: R60.0 Localized edema (principal); I73.9 Peripheral vascular disease, unspecified ==

== ENCOUNTER → 2017-04-25 | Outpatient (CLI) | payer MEDICARE, OTHER | END | disposition home or self-care (01) | LOC: CARD 01:16 | DX: I34.8 Other nonrheumatic mitral valve disorders (principal) ==

== ENCOUNTER → 2017-06-18 | Outpatient (CLI) | payer MEDICARE, OTHER ==
[2017-06-18 08:23] LABS: BASO # 0.1 10*3/uL (0.0-0.1); BASO % 0.6 % (0.0-1.0); EOS # 0.3 10*3/uL (0.0-0.4); EOS % 2.8 % (1.0-4.0); HEMATOCRIT 40.9 % (42.0-52.0); HEMOGLOBIN 12.2 g/dl (14.0-18.0); LYMPH # 3.6 10*3/uL (1.3-4.4); LYMPH % 31.5 % (27.0-41.0); MEAN CELL VOLUME 78.8 fl (80.0-94.0); MEAN CORPUSCULAR HGB 23.5 pg (27.0-31.0); MEAN CORPUSCULAR HGB CONC 29.8 g/dl (33.0-37.0); MEAN PLATELET VOLUME 10.1 fl (9.6-12.3); MONO # 1.3 10*3/uL (0.1-1.0); MONO % 11.3 % (3.0-9.0); NEUT # 6.1 10*3/uL (2.3-7.9); NEUT % 52.8 % (47.0-73.0); PLATELET COUNT AUTOMATED 346 10*3/uL (130-400); RED BLOOD COUNT 5.19 10*6/uL (4.50-5.90); RED CELL DISTRI WIDTH 15.9 % (0-14.5); WHITE BLOOD COUNT 11.5 10*3/uL (4.8-10.8)
[2017-06-18 08:30] LABS: CHLORIDE 102 mmol/L (98-107); POTASSIUM 3.3 mmol/L (3.5-5.1); SODIUM 140 mmol/L (136-145)
[2017-06-18 08:43] LABS: ALBUMIN 3.7 gm/dl (3.1-4.5); ALKALINE PHOSPHATASE 140 U/L (45-117); BUN 15 mg/dl (7-24); CHOLESTEROL 135 mg/dL (<200); CREATININE 1.28 mg/dL (0.70-1.30); FREE T4 1.09 ng/dl (0.76-1.46); HDL CHOLESTEROL 49 mg/dl (40-60); LDH 177 U/L (87-241); LDL CHOLESTEROL 47 mg/dL (9-159); SGOT/AST 16 IU/L (3-35); SGPT/ALT 18 U/L (12-78); TOTAL PROTEIN 7.9 gm/dL (6.4-8.2); TRIGLYCERIDES 195 mg/dl (<150); VLDL CHOLESTEROL 39 mg/dL (6-40)
[2017-06-18 09:06] LABS: VITAMIN D, 25-HYDROXY 27.4 ng/mL (30-100)
== END | disposition home or self-care (01) ==
LOC: LAB 02:08
PROVIDERS: Family Medicine Geriatric Medicine
DX: Z12.5 Encounter for screening for malignant neoplasm of prostate (principal); E11.9 Type 2 diabetes mellitus without complications; J44.9 Chronic obstructive pulmonary disease, unspecified; I10 Essential (primary) hypertension; J43.9 Emphysema, unspecified; Z72.89 Other problems related to lifestyle

== ENCOUNTER 2017-08-03 15:08 | Inpatient (IN) | payer MEDICARE, OTHER ==
[~2017-08-03] VITALS: Ht 170.1 cm; Wt 92.5 kg
--- NOTE | ~2017-08-03 | PR ---
[place], [place] PROGRESS NOTE NAME: JODIE BARCENAS JR [facility] #: [id number] UNIT #: [id number] ROOM: [facility] DOCTOR: CARLOS MANUEL HU MD BIRTHDATE: [birth year] DOS: SUBJECTIVE: The patient has been admitted to hospital with acute respiratory distress, history of COPD, emphysema and came to Emergency Department from where he was admitted to the hospital. The patient has been seen by Dr. Motley, head piece assembler and according to his impression, the patient will be ____ and significant leukocytosis and acute bronchitis without evidence of pneumonia, ____ chronic obstructive pulmonary disease, [id number] hypoxic respiratory failure, history of obstructive sleep apnea, type 2 diabetes mellitus. He has put patient on the antibiotic without any changes and supportive therapy. He was put on Solu-Medrol and BiPAP. His ASA MRSA is negative. His sputum culture and sensitivity did not grow any bacteria. B12 and folic acid are normal. Hemoglobin A1c is 8.1. OBJECTIVE: VITAL SIGNS: His blood pressure is 116/64, pulse 90, respirations 23, temperature 97.5 and he is having 97% oxygen on BiPAP. HEART: Regular. CHEST: Having increased expiration. No crepitation. CARLOS MANUEL HU MD CM:PNTRANS [id number] [id number] CARLOS MANUEL HU MD 08/05/17 1020 interface
--- NOTE | ~2017-08-03 | PR ---
[place], [place] PROGRESS NOTE NAME: JODIE BARCENAS JR UNIT #: [id number] ROOM: [facility] DOCTOR: UMANG ELDER MD BIRTHDATE: [birth year] DOS: 08/07/2017 CARDIOLOGY PROGRESS NOTE SUBJECTIVE: The patient was seen at his bedside today 08/07/2017 for followup of his multifocal atrial tachycardia. He is a 76-year-old man with a history of atherosclerotic heart disease and obstructive lung disease, who presented to the hospital on this occasion with acute on chronic hypoxic and hypercapnic respiratory failure. He states that he had a fever and he was noted to have an elevated white count along with cough and dyspnea. We were consulted because of an irregular tachycardia and my review of his rhythm strips suggested that he did have multifocal atrial tachycardia. He was started on verapamil yesterday and his rates have been much better controlled. PHYSICAL EXAMINATION: VITAL SIGNS: Today, his pulse is 88 and regular with occasional premature beats. Blood pressure is 120/68. He is afebrile. He weighs 92.5 kg and has a body mass index of 32. NECK: Supple. He has no jugular distention. Carotids are full. LUNGS: Respirations are unlabored at rest. He has decreased breath sounds with expiratory prolongation bilaterally, but no wheezes or rales. He has no presacral edema. HEART: Has a regular rhythm with occasional premature beats. ABDOMEN: Obese, but otherwise benign. EXTREMITIES: Showed 1+ edema bilaterally. IMPRESSION: 1. Multifocal atrial tachycardia. 2. Acute exacerbation of chronic lung disease. 3. Chronic hypoxemic and hypercarbic respiratory failure. 4. History of coronary artery disease status post bypass surgery in 2012. 5. Hyperlipidemia. 6. Obstructive sleep apnea. PLAN: We will continue to follow the patient in the hospital. No other cardiac workup is planned at this time. The dose of verapamil will be adjusted as needed, but I presume that as his lungs improve his arrhythmias will as well. We thank Dr. Allen for asking our advice regarding management of this patient. [place], [place] PROGRESS NOTE NAME: JODIE BARCENAS JR UNIT #: [id number] ROOM: [facility] DOCTOR: UMANG ELDER MD BIRTHDATE: [birth year] UMANG ELDER MD CM:PNVIRAL [phone] UMANG ELDER MD 08/07/17 1552 interface
--- NOTE | ~2017-08-03 | PR ---
[place], [place] PROGRESS NOTE NAME: JODIE BARCENAS JR [facility] #: [id number] UNIT #: [id number] ROOM: [facility] DOCTOR: CLARIBEL HOOD MD,PARVEZ BIRTHDATE: [birth year] DOS: 08/08/2017 SUBJECTIVE: The patient is transferred from the Intensive Care Unit to medical floor. The patient has been noted with increased hypoxia and shortness of breath, unable to titrate the patient with the nasal cannula high flow. He was transferred to the Intensive Care Unit. In the Intensive Care Unit, the patient was started on Optiflow high flow nasal cannula supplementation of oxygen. The patient was currently getting 50% oxygen supplementation to maintain pulse ox saturation 97% at rest. He has been sitting on the chair. Denies symptoms of chest pain. He does have symptoms of wheezing. There were no symptoms of hemoptysis. Denies symptoms of nausea or vomiting. Denies any pain or edema of the lower extremities. Remaining systems were reviewed for the patient, they were noted all negative. OBJECTIVE: VITAL SIGNS: For the patient, which has been recorded showed normal temperature, respiratory rate 18-24, heart rate 109-101, blood pressure 128/73-137/53. The pulse oxygen saturation of the patient noted on 10 liters high flow nasal cannula yesterday was 94%. This morning, oxygen supplementation with 50% Optiflow of oxygen, the patient was noted with 94-97% saturation. HEENT: Head atraumatic. Eyes nonicterus. CARDIOVASCULAR: S1, S2 is audible. LUNGS: The patient was noted with moderate decreased breath sounds with expiratory wheezing. There were no crackles heard. ABDOMEN: Soft, nontender. EXTREMITIES: The patient noted without any acute edema. SKIN: Visible skin, no lesions or rashes. MUSCULOSKELETAL SYMPTOMS: Without any acute deformities. CENTRAL NERVOUS SYSTEM: Cranial nerves 2-12 intact. No focal deficit. LABORATORY DATA: CMP of the patient this morning, BUN 33, creatinine 1.41, glucose 137. The CBC of the patient this morning, WBC count 19.6, hemoglobin 12.2, hematocrit 40.2, platelets 452,000. Arterial blood gas on 50% oxygen was ordered this morning on Optiflow of oxygen, pH of 7.43, pCO2 of 41, pO2 73. Troponin 2 sets, which was done was noted as negative. IMAGING STUDIES: Chest x-ray, 1 view, which was done at 3:28 a.m. was noted without any acute pulmonary infiltration, small area of atelectasis in the left lower lung remains. IMPRESSION: 1. The patient with ongoing acute exacerbation of chronic obstructive pulmonary disease with increased wheezing noted at this time with worsening of the hypoxia, currently responding to treatment. 2. Acute tracheobronchitis as well. 3. Atrial fibrillation, currently noted with controlled range. PLAN OF TREATMENT: Continuation of the Optiflow of oxygen. BiPAP to be used at nighttime and p.r.n. during the day for respiratory distress at the time of using Optiflow for oxygen supplementation. Bronchodilators. Increase the [place], [place] PROGRESS NOTE NAME: JODIE BARCENAS JR UNIT #: [id number] ROOM: [facility] DOCTOR: CLARIBEL HOOD MD,PARVEZ BIRTHDATE: [birth year] corticosteroids again to 40 mg b.i.d. dosing because of increased bronchospasm and hypoxia. There were no signs of active infection or pneumonia. At the present time, leukocytosis was observed for the patient most likely related to the use of the corticosteroids. The patient was given one dose of 125 mg Solu-Medrol ____ at the time of respiratory distress at 3:20 a.m. PARVEZ SANFORD MD CM:PNTRANS [id number] PARVEZ HOOD MD 08/09/17 0338 interface
--- NOTE | ~2017-08-03 | PR ---
[place], [place] PROGRESS NOTE NAME: JODIE BARCENAS JR [facility] #: [id number] UNIT #: [id number] ROOM: [facility] DOCTOR: PARVEZ BURKS MD BIRTHDATE: [birth year] DOS: 08/09/2017 SUBJECTIVE: The patient has been noted comfortable at this time, used the BiPAP last night and still using BiPAP this morning. He is currently requiring oxygen supplementation 65% with the use of the BiPAP. Pulse ox saturation was recorded as 97% saturation remained in the Intensive Care Unit. He has been noted with reduction in symptoms of shortness of breath from yesterday. The cough has been noted minimal. There was no wheezing. Denies chest pain or headache. Denies symptoms of nausea, vomiting, diarrhea, abdominal pain. Dysuria, suprapubic pain, hematuria. Denies any pain in the lower extremities. Remaining systems were reviewed with the patient, they were noted all negative. OBJECTIVE: VITAL SIGNS: For the patient recorded as a normal temperature, respiratory 20, heart rate of 88, blood pressure 138/70. HEAD, EYES, EARS, NOSE, AND THROAT: Showed no new change. Head was atraumatic. NECK: Supple. CARDIOVASCULAR SYSTEM: S1, S2 is audible. LUNGS: The patient was noted without any crackles, rhonchi. ____ was noted, [id number], which is improving. ABDOMEN: Moderate obesity. Bowel sounds present. EXTREMITIES: The patient noted without any acute edema. MUSCULOSKELETAL SYMPTOM: The patient was noted without any acute deformities. SKIN: Noted without any lesions or rashes. GENITOURINARY: Nonfocal. LABORATORY DATA: CBC today: WBC count was noted with elevation of WBC count 28, hemoglobin 11.9, hematocrit 39.5, and platelet count 425,000. CMP: BUN 26, creatinine normal, glucose 206. IMPRESSION: 1. The patient with leukocytosis, which has been noted increase, probably related to corticosteroids. The patient does not have any GI symptoms to be concern for the possibility of Clostridium difficile colitis. 2. The patient with resolving acute on chronic hypoxic respiratory failure as well. The bronchodilators to be continued. Use of the BiPAP at nighttime. During daytime an oxygen supplementation, other time was be continued. PLAN OF TREATMENT: Continue current dose of corticosteroids. The wheezing was noted decreased. Stool for C. diff toxin was ordered for this patient in case of diarrhea that could be sent to the lab. Continue to monitor leukocytosis. Usual care, other supportive plan of management and care. Addition therapy changes to be made based on progression of the illness. [place], [place] PROGRESS NOTE NAME: SWAPNA JODIE SANCHEZ UNIT #: [id number] ROOM: [facility] DOCTOR: PARVEZ BURKS MD BIRTHDATE: [birth year] PARVEZ SANFORD MD CM:HERNANDEZ [phone] PARVEZ HOOD MD 08/09/17 0956 interface
--- NOTE | ~2017-08-03 | PR ---
[place], [place] PROGRESS NOTE [id number] #: [id number] ROOM: [facility] DOCTOR: CLARIBEL HOOD MD,PARVEZ BIRTHDATE: [birth year] DOS: 08/05/2017 PULMONARY PROGRESS NOTE SUBJECTIVE: He has been noted comfortable at this time, sitting on the chair this morning. Shortness of breath and other symptoms have been noted decreased. Denies symptoms of hemoptysis or diarrhea at the present time. Denies symptoms of nausea or vomiting. OBJECTIVE: VITAL SIGNS: Vital signs of the patient which has been recorded shows a normal temperature, respiratory rate 21, heart rate 117, blood pressure 113/49, and pulse oxygen saturation on high flow nasal cannula 10 liters is 93% saturation. HEENT: No acute change. CARDIOVASCULAR: S1, S2 audible. LUNGS: Noted with moderate decreased breath sounds, scattered wheezing, no crackles. ABDOMEN: Soft, nontender. Moderate obesity. Bowel sounds present. IMPRESSION: 1. The patient with stable respiratory status noted at this time with acute exacerbation of chronic obstructive pulmonary disease and acute bronchitis. Culture of the bronchial washings were noted normal quynh. 2. Obstructive sleep apnea disorder. PLAN OF TREATMENT: Monitor culture results. Continue bronchodilators, oxygen supplementation, corticosteroids, other therapy, and plan of management. Usual care. PARVEZ SANFORD MD CM:PNTRANS [id number] PARVEZ HOOD MD 08/06/17 0952 interface
--- NOTE | ~2017-08-03 | PR ---
[place], [place] PROGRESS NOTE NAME: JODIE BARCENAS JR UNIT #: [id number] ROOM: [facility] DOCTOR: UMANG ELDER MD BIRTHDATE: [birth year] DOS: 08/09/2017 SUBJECTIVE: The patient was seen today at his bedside in the Intensive Care Unit on 08/09/2017 for followup of multifocal atrial tachycardia. He has a history of atherosclerotic heart disease along with his obstructive lung disease and he presented to the hospital on this occasion with an acute exacerbation of his chronic hypoxemic and hypercapnic respiratory failure. We were consulted because of irregular tachycardia and rhythm strips demonstrated multifocal atrial tachycardia. He was started on verapamil and has had a better control of his rate. He states that when he works to breathe, he does have some chest heaviness, but when he is getting good respiratory support such as with his BiPAP, he feels well. PHYSICAL EXAMINATION: VITAL SIGNS: Today, his pulse is 90 and slightly irregular. Blood pressure is 140/70. He is afebrile. He weighs 92.5 kg and has a body mass index of 32. NECK: Supple. He has no jugular distention. Carotids are full. LUNGS: Respirations are unlabored. He has decreased breath sounds at the bases. HEART: Has a regular rhythm with frequent premature contraction. ABDOMEN: Soft. EXTREMITIES: Showed no edema today. IMPRESSION: 1. Multifocal atrial tachycardia. 2. Acute exacerbation of chronic lung disease. 3. Chronic hypoxemic and hypercarbic respiratory failure. 4. History of coronary artery disease, status post bypass surgery in 2012. 5. Pharmacologic myocardial perfusion study 08/18/2016, ejection fraction 83%, no ischemia, low risk exam. 6. Obstructive sleep apnea. PLAN: We will continue to treat his heart rate with verapamil. As his lungs improve, his heart rate should improve as well. We will continue to follow him with Dr. Allen and I thank Dr. Allen for asking our advice regarding his care. [place], [place] PROGRESS NOTE NAME: JODIE BARCENAS JR UNIT #: [id number] ROOM: [facility] DOCTOR: UMANG ELDER MD BIRTHDATE: [birth year] UMANG ELDER MD CM:PNTRANS 1032 UMANG ELDER MD 08/09/17 1057 interface
--- NOTE | ~2017-08-03 | EKG ---
[place], [place] ELECTROCARDIOGRAM REPORT NAME: JODIE BARCENAS JR UNIT #: [id number] ROOM: [facility] DOCTOR: CALRIBEL HOOD MD,PARVEZ BIRTHDATE: [birth year] DOS: 08/03/2017 The electrocardiogram done on 08/03/2017 at 15:47 hour. Sinus tachycardia noted, heart rate 116 beats per minute. Right axis deviation was noted. PARVEZ SANFORD MD CM:EKGRPT:ELECTROCARDIOGRAM REPORT [id number] PARVEZ HOOD MD
--- NOTE | ~2017-08-03 | CON ---
[place], [place] REPORT OF CONSULTATION [id number] UNIT #: [id number] ROOM: [facility] DOCTOR: UMANG ELDER MD BIRTHDATE: [birth year] DOS: 08/06/2017 CHIEF COMPLAINT: Tachycardia, dyspnea. HISTORY OF PRESENT ILLNESS: The patient is a 76-year-old man who does have a long history of atherosclerotic heart disease and obstructive lung disease. He did have unstable angina, prompting catheterization and bypass surgery in 2012. Procedure was done at the [facility] in [place]. He has been more recently followed by Dr. Yennifer Zuñiga. A stress test a year ago showed normal left ventricular function and no ischemia. An echocardiogram earlier this year also showed normal left ventricular function. The patient presented to the hospital on this occasion with a history of chronic hypoxic respiratory failure with hypercapnia and COPD as well as obstructive sleep apnea. He was developing increasing shortness of breath and went to see Dr. Allen, his primary physician. He did have a fever and elevated white count. He was therefore sent to the hospital for suspected pneumonia and was admitted. Since he has been in the hospital, he states that he has had some chest tightness, but this is better when he is on oxygen. He denies any diaphoresis, palpitations, or syncope, but he has been noticed to have a rapid pulse. We were asked to see him for that. PAST MEDICAL HISTORY: Includes 1. Advanced obstructive lung disease. 2. Chronic hypoxic respiratory failure with hypercapnia. 3. History of coronary artery disease status post bypass surgery [facility] in 2012. 4. Hyperlipidemia. 5. Paroxysmal atrial fibrillation. 6. Obesity. 7. Obstructive sleep apnea. 8. Bilateral total hip replacements. MEDICATIONS PRIOR TO ADMISSION: Albuterol 2 puffs q.8 hours p.r.n., Advair 500/50 one puff q.12 hours, Spiriva inhaled 1 capsule daily, Incruse Ellipta 1 puff daily, oxygen 3-4 liters by nasal cannula continuously, Tylenol p.r.n., aspirin 81 mg per day, atorvastatin 10 mg daily, vitamin D3 2000 units daily, docusate 100 mg daily, furosemide 80 mg daily, gabapentin 300 mg q.8 hours, guaifenesin 600 mg b.i.d., isosorbide mononitrate 30 mg daily, loratadine 10 mg per day, lorazepam 0.5 mg at bedtime, losartan 50 mg daily, metoprolol 50 mg twice a day, Singulair 10 mg per day, multivitamin with minerals daily, omeprazole 20 mg daily, polyethylene glycol p.r.n. constipation, potassium chloride 20 mEq 2 tablets daily, Daliresp 500 mcg daily, Ambien 10 mg at bedtime, nitroglycerin sublingually p.r.n., and Levemir insulin 13 units subcutaneously daily. ALLERGIES: The patient lists allergies to OXYCODONE, and MEPERIDINE. REVIEW OF SYSTEMS: The patient denies diplopia or loss of vision. He denies focal weakness or history of stroke. He did have chills, dyspnea and cough just [place], [place] REPORT OF CONSULTATION NAME: JODIE BARCENAS JR UNIT #: [id number] ROOM: [facility] DOCTOR: UMANG ELDER MD BIRTHDATE: [birth year] prior to admission. He denied orthopnea or PND. He denied hemoptysis or hematemesis, but he did have a minimally productive cough, denied change in bowel or bladder habits. He denied blood in his urine or stools. He denies any peripheral edema. He does have dyspnea with minimal exertion. He denies any skin rashes. The remainder of the review of systems is negative except as noted above. SOCIAL HISTORY: The patient is and lives with his . He no longer smokes. PHYSICAL EXAMINATION: GENERAL: Reveals a well-nourished white male who looks older than his stated age. VITAL SIGNS: Pulse is 120 and irregularly irregular. Blood pressure is 123/59. He is afebrile. NECK: Supple. He has no jugular distention. Carotids are full. I heard no bruits. He had no neck or supraclavicular masses. LUNGS: Respirations are slightly labored at rest. He does have bibasilar crackles and expiratory prolongation with decreased breath sounds bilaterally. He has no presacral edema. He has no chest wall tenderness. HEART: Has an irregular rhythm. He does have a fourth heart sound, but no third heart sound. The PMI is not displaced. There are no obvious murmurs. ABDOMEN: Obese, but otherwise benign. EXTREMITIES: Showed no edema. Peripheral pulses are diminished in the feet. IMAGING: I reviewed his electrocardiogram, which does show evidence for multifocal atrial tachycardia. LABORATORY DATA: White count on admission was 25,200 with a hemoglobin of 12.5 and a platelet count of 380,000, white count has fallen to 17,700 today. Sodium is 138, potassium 3.9, chloride 103, CO2 26, BUN 17, creatinine 1.15. Sugar 209. Serial troponin levels have been negative thus far. IMPRESSION: 1. Multifocal atrial tachycardia. 2. Acute exacerbation of chronic lung disease. 3. Chronic hypoxemic and hypercarbic respiratory failure, on home oxygen. 4. History of coronary artery disease status post bypass surgery in 2013. 5. Hyperlipidemia. 6. Obstructive sleep apnea. PLAN: The patient will be placed on verapamil to help slow his heart rate response to the multifocal atrial tachycardia. We will not be doing any further testing since he had a stress test within the last year and an echo within the last few months and shows no signs of acute cardiac decompensation. We will continue to watch him in the hospital with his other physicians, however. We thank Dr. Allen for asking our advice regarding the patient's care. [place], [place] REPORT OF CONSULTATION NAME: JODIE BARCENAS JR UNIT #: [id number] ROOM: [facility] DOCTOR: UMANG ELDER MD BIRTHDATE: [birth year] UMANG ELDER MD CM:CONSTR:REPORT OF CONSULTATION 1542 08/06/17 1642 interface
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
--- NOTE | ~2017-08-03 | PR ---
[place], [place] PROGRESS NOTE NAME: JODIE BARCENAS JR [facility] #: [id number] UNIT #: [id number] [facility]OM: [facility] DOCTOR: CLARIBEL HOOD MD,PARVEZ BIRTHDATE: [birth year] DOS: 08/10/2017 PULMONARY PROGRESS NOTE SUBJECTIVE: The patient noted very comfortable this morning, but noted significant increase of coughing with very purulent secretions of expectoration this morning. He denies symptoms of chest pain or hemoptysis. Denies symptoms of nausea or vomiting. No edema of the lower extremity. Shortness of breath still noted requiring 50%-60% of oxygen supplementation with Optiflow nasal cannula and also required the BiPAP. The patient used the BiPAP last night. This morning, sitting on his bed using Optiflow high flow oxygen supplementation. The remaining systems were reviewed and they were noted all negative. PHYSICAL EXAMINATION: VITAL SIGNS: Showed normal temperature, respiratory rate 31-19, heart rate was noted intermittently with rapid ventricular response with tachycardia with atrial fibrillation to 128-117. The blood pressure is 120/70-102/50. Pulse oxygen saturation was noted as 94% saturation on 50% Optiflow oxygen supplementation. HEENT: Examination shows head was atraumatic. Eyes nonicterus. NECK: Supple. CARDIOVASCULAR: S1, S2 is audible. LUNGS: The patient was noted with moderate decreased breath sounds with scattered expiratory wheezing. No crackles. ABDOMEN: Soft, nontender. EXTREMITIES: Without any acute edema. CENTRAL NERVOUS SYSTEM: Nonfocal. MUSCULOSKELETAL: No deformities. SKIN: Noted scattered areas of bruising, medication-related. LABORATORY DATA: CMP today, glucose 210, BUN 28, and creatinine was normal. Albumin of 2.5. Total protein 5.9. CBC, WBC count was elevated at 28.9, hemoglobin 9.1, hematocrit 36.1 with platelet count 399,000. IMPRESSION: 1. The patient with acute pneumonia suspected strongly at this time with severe purulent tracheobronchitis resulting in leukocytosis and current worsening of the respiratory status. 2. Ongoing acute exacerbation of chronic obstructive pulmonary disease as well. 3. The patient with a history of type 2 diabetes mellitus. 4. Obstructive sleep apnea disorder. 5. Severe acute and chronic hypoxic respiratory failure. 6. Overall severe debility secondary to all of the above. There was no diarrhea noted. 7. Clostridium difficile colitis suspected. PLAN OF MANAGEMENT: The patient will be started on intravenous meropenem and doxycycline at the present time and the antibiotics. The sputum culture was ordered. The patient could be transferred to Intensive Care Unit. Continue [place], [place] PROGRESS NOTE NAME: JODIE BARCENAS JR UNIT #: [id number] [facility]OM: [facility] DOCTOR: LCARIBEL HOOD MD,PARVEZ BIRTHDATE: [birth year] Solu-Medrol 40 mg b.i.d. All other supportive therapy, plan of management, and care. Additional treatment changes to be made for the patient based on the progression of illness. PARVEZ SANFORD MD CM:PNTRANS [id number] PARVEZ HOOD MD 08/11/17 0155 interface
--- NOTE | ~2017-08-03 | PR ---
[place], [place] PROGRESS NOTE NAME: [id number] UN[facility] #: [id number] ROOM: 404 DOCTOR: CLARIBEL HOOD MD,PARVEZ BIRTHDATE: [birth year] DOS: 08/06/2017 SUBJECTIVE: The patient noted comfortable at this time, sitting on the chair this morning. The coughing has been noted decreased. There were no symptoms of chest pain, shortness of breath and wheezing was gradually resolving. OBJECTIVE: VITAL SIGNS: Normal temperature, respiratory rate 14, heart rate of 101, blood pressure 126/58. Pulse oxygen saturation with 6 liters high flow nasal cannula 98% saturation. HEENT: Examination shows no acute change. NECK: Supple. CARDIOVASCULAR: S1, S2 is audible. LUNGS: Moderate decreased breath sounds without any crackles. ABDOMEN: Soft, nontender. EXTREMITIES: Without any acute edema. IMPRESSION: 1. Stable respiratory status with resolving acute exacerbation of chronic obstructive pulmonary disease, [id number] hypoxic respiratory failure. 2. Obstructive sleep apnea disorder. PLAN OF MANAGEMENT: No changes in the plan of care at this time for the bronchodilators. Continue bronchodilators with oxygen supplementation. Reduction of Solu-Medrol dose will be started, starting Solu-Medrol 40 mg q.8 hours to b.i.d. dosing. The assessment for today's visit was discussed with Dr. Vel Allen. PARVEZ SANFORD MD CM:PNTRANS [id number] PARVEZ HOOD MD 08/07/172203 interface
--- NOTE | ~2017-08-03 | PR ---
[place], [place] PROGRESS NOTE NAME: JODIE BARCENAS JR UNIT #: [id number] ROOM: [facility] DOCTOR: SAI STEINBERG MD BIRTHDATE: [birth year] DOS: 08/06/2017 SUBJECTIVE: The patient was seen in the ICU. The patient is doing well. He was admitted on the weekend. The patient was seen by Dr. Adler over the weekend. The patient denies any chest pain, denies any nausea or vomiting. OBJECTIVE: VITAL SIGNS: Blood pressure 126/58, pulse is 101, respiratory 14, temperature 98.7. HEAD: Normocephalic. CHEST: Clinically clear to auscultation bilaterally. HEART: S1, S2 regular rate and rhythm. It does show some PACs. I did consult Dr. Zuñiga for continuity of care. ABDOMEN: Soft, nontender. EXTREMITIES: The patient has 1-2+ pedal edema as the baseline. He has chronic cellulitis. ASSESSMENT: At this time: 1. Chronic obstructive pulmonary disease exacerbation and acute tracheobronchitis. Culture of the bronchial washings was noted to be normal quynh. 2. Obstructive sleep apnea. 3. Cellulitis of the lower extremities. 4. Deep venous thrombosis prophylaxis. 5. Diabetes mellitus type 2. Hemoglobin A1c was 8.1. 6. Leukocytosis. PLAN OF CARE: 1. We will continue Levaquin. 2. Continue methylprednisone at 40 q. 8 hours and DuoNeb breathing treatments. 3. Continue home medications and will follow the patient. 4. We will add the patient on insulin sliding scale. The patient will be started on metformin 1000 mg twice a day. [place], [place] PROGRESS NOTE NAME: JODIE BARCENAS JR UNIT #: [id number] ROOM: [facility] DOCTOR: SAI STEINBERG MD BIRTHDATE: [birth year] SAI STEINBERG MD CM:PNTRANS 1228 [id number] SAI STEINBERG MD 08/06/17 1251 interface
--- NOTE | ~2017-08-03 | PR ---
[place], [place] PROGRESS NOTE NAME: JODIE BARCENAS JR [facility] #: [id number] UNIT #: [id number] ROOM: [facility] DOCTOR: CLARIBEL HOOD MD,PARVEZ BIRTHDATE: [birth year] DOS: 08/07/2017 SUBJECTIVE: The patient has not been noted with any ongoing acute complaints at this time. He was noted comfortable, resting on the chair. Symptoms of the patient of the respiratory tract, shortness of breath, coughing, and wheezing are resolving. The patient was noted with atrial fibrillation, rapid ventricular response, which has been managed by Dr. Sanderson with improvement in the tachycardia noted. OBJECTIVE: VITAL SIGNS: This morning, heart rate 103 with atrial fibrillation, respiratory rate 21, temperature normal, blood pressure 108/66. Pulse oxygen saturation on 10 liters high flow nasal cannula 97-98% saturation at the bedside. HEENT: No acute change. NECK: Supple. CARDIOVASCULAR: S1, S2 audible. LUNGS: Mild to moderate decreased breath sounds bilaterally. ABDOMEN: Soft, nontender. EXTREMITIES: No edema. LABORATORY DATA: CBC, WBC count 13.4, hemoglobin 11.6, platelet count 424,000. Creatinine was noted as normal. IMPRESSION: Stable respiratory status was noted at the present time with acute exacerbation of chronic obstructive pulmonary disease, atrial fibrillation with rapid ventricular response. Sputum culture noted with no bacterial growths. PLAN OF MANAGEMENT: Continuation of the bronchodilator with oxygen supplementation. Decrease the Solu-Medrol dose to 40 mg daily. Continuation of the oxygen supplementation, but titrate to maintain a pulse ox saturation 92% or greater. Continue other treatment changes of the patient for the atrial fibrillation management per Cardiology services. PARVEZ SANFORD MD CM:PNTRANS 1348 PARVEZ HOOD MD 08/08/17 0517 interface
--- NOTE | ~2017-08-03 | PR ---
[place], [place] PROGRESS NOTE NAME: JODIE BARCENAS JR UNIT #: [id number] ROOM: [facility] DOCTOR: UMANG ELDER MD BIRTHDATE: [birth year] DOS: 08/08/2017 CARDIOLOGY PROGRESS NOTE SUBJECTIVE: The patient was seen at his bedside in the Intensive Care Unit with his family in attendance today. He is currently feeling well. He had a bad episode overnight where he awakened from a nightmare with dyspnea. He was somewhat hypotensive at that time and received fluids and improved. This afternoon, he was noted by nursing staff to be hypotensive again even though his skin was warm and dry and he was mentating appropriately. I did have them stop his beta william, angiotensin receptor william and his diuretics had already been placed on hold. Upon my evaluation, he looks well and when I took his blood pressure it was 120/80. His heart rate has been well maintained with verapamil p.o. He denies any chest pain and is breathing slightly better. PHYSICAL EXAMINATION: VITAL SIGNS: Today his pulse is 90 and regular with occasional premature beats, blood pressure was 120/80. He was afebrile. NECK: Supple. He had no jugular distention. Carotids were full. LUNGS: Respirations were unlabored at rest. He had decreased breath sounds bilaterally with expiratory prolongation and a few scattered wheezes, especially on the right. HEART: Has a regular rhythm with frequent premature beats. Heart tones are distant. ABDOMEN: Benign. EXTREMITIES: Showed trace edema. IMPRESSION: 1. Multifocal atrial tachycardia. 2. Acute exacerbation of chronic lung disease. 3. Chronic hypoxemic and hypercapnic respiratory failure. 4. History of coronary artery disease, status post bypass surgery in 2012. 5. Hyperlipidemia. 6. Obstructive sleep apnea. PLAN: We will continue to observe his heart rate and blood pressure in the hospital. His primary physicians and Dr. Motley will continue to treat his lungs aggressively. As his lungs improve, his arrhythmias should improve as well. We thank Dr. Allen for asking our advice regarding his care. [place], [place] PROGRESS NOTE NAME: JODIE BARCENAS JR UNIT #: [id number] ROOM: [facility] DOCTOR: UMANG ELDER MD BIRTHDATE: [birth year] UMANG ELDER MD CM:PNVIRAL [id number] UMANG ELDER MD 08/10/17 0825 interface
--- NOTE | ~2017-08-03 | PR ---
[place], [place] PROGRESS NOTE NAME: JODIE BARCENAS JR [facility] #: [id number] UNIT #: [id number] ROOM: [facility] DOCTOR: CARLOS MANUEL HU MD BIRTHDATE: [birth year] DOS: SUBJECTIVE: The patient has been admitted to hospital with acute exacerbation of COPD with acute respiratory tract infection with feeling of marked weakness and possible pneumonia and was feeling very weak and went to see Dr. Allen and was sent to the Emergency Department where he was admitted to the hospital with acute sepsis and hypoxia and acute exacerbation of COPD with emphysema. His chest x-ray shows COPD, ____ atelectasis with acute finding. He has past history of acute respiratory failure with hypoxia, coronary heart disease, chronic kidney disease, COPD, GERD syndrome, hyperlipidemia, hypertension, lung fibrosis, diabetes, protein calorie malnutrition and tobacco abuse. He has history of adenoidectomy, history of bilateral hip replacement, history of tonsillectomy, triple vessel bypass. He does not drink. He does not use any illicit drugs. He stopped smoking. OBJECTIVE: GENERAL: The patient is conscious, alert, having oxygen on. VITAL SIGNS: His blood pressure 117/58, pulse 95, respirations 16, temperature 98.1. LABORATORY DATA: His hemoglobin A1c 8.1. Protime is 12. Comprehensive metabolic profile shows glucose 209, other values are normal. Albumin is 3. TSH level ____, T4 is 1, other values are fairly normal. CBC showed white count 7700, hemoglobin 11, hematocrit 36.9, MCV 78.8. the patient is stable and his oxygen level is 96% on 4 liters. CARLOS MANUEL UH MD CM:PNTRANS [id number] CARLOS MANUEL HU MD 08/04/17 1150 interface
[~2017-08-03 15:08] MED LIST changes: +ADV 500/50 INH; +BAYER ASPIRIN C81 MG PO; -BAYER ASPIRIN R81 MG PO; +LEVEMIR FL100 UNIT/1 SQ; -LEVEMIR10 ML SC; -PRILOSEC20 MG PO; +SINGULAIR10 M1 PO; -SINGULAIR10 MG PO
[2017-08-03 15:10] VITALS: BP 113/75
[2017-08-03 16:33] LABS: HEMATOCRIT 41.9 % (42.0-52.0); HEMOGLOBIN 12.5 g/dl (14.0-18.0); MEAN CELL VOLUME 79.7 fl (80.0-94.0); MEAN CORPUSCULAR HGB 23.8 pg (27.0-31.0); MEAN CORPUSCULAR HGB CONC 29.8 g/dl (33.0-37.0); PLATELET COUNT AUTOMATED 380 10*3/uL (130-400); RED BLOOD COUNT 5.26 10*6/uL (4.50-5.90); RED CELL DISTRI WIDTH 17.6 % (0-14.5); WHITE BLOOD COUNT 25.2 10*3/uL (4.8-10.8)
[2017-08-03 16:41] LABS: ACT PARTIAL THROMBO TIME 24.4 SECONDS (20.8-31.5); INTERNATIONAL NORM RATIO 1.1 (2.0-3.5)
[2017-08-03 16:49] LABS: ALBUMIN 3.7 gm/dl (3.1-4.5); ALKALINE PHOSPHATASE 135 U/L (45-117); BUN 13 mg/dl (7-24); CHLORIDE 99 mmol/L (98-107); CREATININE 1.29 mg/dL (0.70-1.30); POTASSIUM 4.1 mmol/L (3.5-5.1); SGOT/AST 16 IU/L (3-35); SGPT/ALT 20 U/L (12-78); SODIUM 137 mmol/L (136-145)
[2017-08-03 16:50] LABS: TROPONIN I < 0.015 ng/ml (<0.045)
[2017-08-03 16:53] LABS: ATYPICAL LYMPHS 2 % (0-0); TOTAL CELLS COUNTED 100 #CELLS
[2017-08-03 16:54] VITALS: BP 117/66
[2017-08-03 16:54] LABS: OVALOCYTES FEW; PLATELET SUFFICIENCY NORMAL (NORMAL); POLYCHROMASIA SLIGHT
[2017-08-03 17:30] VITALS: BP 85/70
[2017-08-03] MEDS ORDERED: NITROSTAT0.4 MG SL (18:05)
[2017-08-03] MEDS ORDERED: MIRALAX POWDER255 G1 PO (18:09)
[2017-08-03] MEDS ORDERED: INCRUSE ELLI62.5 MCG INH (18:11)
[2017-08-03] MEDS ORDERED: GUAIFENESIN600 MG PO (18:11)
[2017-08-03] MEDS ORDERED: VITAMIN D32000 UNIT PO (18:12)
[2017-08-03] MEDS ORDERED: DALI500T PO (18:13)
[2017-08-03 20:00] VITALS: BP 131/69
[2017-08-04] VITALS: BP 117/69
[2017-08-04 04:00] VITALS: BP 117/58
[2017-08-04 06:00] LABS: BASO % 0.2 % (0.0-1.0); HEMATOCRIT 36.9 % (42.0-52.0); LYMPH # 1.7 10*3/uL (1.3-4.4); LYMPH % 9.7 % (27.0-41.0); MEAN CELL VOLUME 78.8 fl (80.0-94.0); MEAN CORPUSCULAR HGB 23.5 pg (27.0-31.0); MEAN CORPUSCULAR HGB CONC 29.8 g/dl (33.0-37.0); MEAN PLATELET VOLUME 10.1 fl (9.6-12.3); MONO # 0.6 10*3/uL (0.1-1.0); MONO % 3.1 % (3.0-9.0); NEUT # 15.2 10*3/uL (2.3-7.9); NEUT % 86.1 % (47.0-73.0); PLATELET COUNT AUTOMATED 355 10*3/uL (130-400); RED BLOOD COUNT 4.68 10*6/uL (4.50-5.90); RED CELL DISTRI WIDTH 17.5 % (0-14.5); WHITE BLOOD COUNT 17.7 10*3/uL (4.8-10.8)
[2017-08-04 06:13] LABS: ALKALINE PHOSPHATASE 113 U/L (45-117); BUN 17 mg/dl (7-24); CHLORIDE 103 mmol/L (98-107); CHOLESTEROL 116 mg/dL (<200); CREATININE 1.15 mg/dL (0.70-1.30); HDL CHOLESTEROL 54 mg/dl (40-60); LDL CHOLESTEROL 51 mg/dL (9-159); PHOSPHOROUS 2.7 mg/dL (2.5-4.9); POTASSIUM 3.9 mmol/L (3.5-5.1); SGOT/AST 12 IU/L (3-35); SGPT/ALT 18 U/L (12-78); SODIUM 138 mmol/L (136-145); TRIGLYCERIDES 57 mg/dl (<150); VLDL CHOLESTEROL 11 mg/dL (6-40)
[2017-08-04 06:16] LABS: ACT PARTIAL THROMBO TIME 28.1 SECONDS (20.8-31.5); INTERNATIONAL NORM RATIO 1.1 (2.0-3.5)
[2017-08-04 06:18] LABS: THYROID STIM HORMONE (HS) 0.284 uIU/ml (0.358-4.75)
[2017-08-04 07:57] LABS: VITAMIN D, 25-HYDROXY 35.5 ng/mL (30-100)
[2017-08-04 08:00] VITALS: BP 136/74
[2017-08-04 12:00] VITALS: BP 122/68
[2017-08-04 16:00] VITALS: BP 121/68
[2017-08-05] VITALS: BP 134/62
[2017-08-05 04:00] VITALS: BP 116/64
[2017-08-05 08:00] VITALS: BP 129/62
[2017-08-05 12:00] VITALS: BP 113/49
[2017-08-05 16:00] VITALS: BP 117/51
[2017-08-05 20:00] VITALS: BP 120/63
[2017-08-06] VITALS: BP 126/67
[2017-08-06 04:00] VITALS: BP 126/58
[2017-08-06 08:00] VITALS: BP 126/58
[2017-08-06 12:00] VITALS: BP 123/59
[2017-08-06 16:00] VITALS: BP 118/58
[2017-08-06 20:00] VITALS: BP 124/66
[2017-08-07] VITALS (7 sets, daily range): BP systolic 101–137; BP diastolic 53–68
[2017-08-07 05:25] LABS: CREATININE 1.25 mg/dL (0.70-1.30)
[2017-08-07 06:01] LABS: HEMOGLOBIN 11.6 g/dl (14.0-18.0); MEAN CELL VOLUME 79.1 fl (80.0-94.0); MEAN CORPUSCULAR HGB 23.5 pg (27.0-31.0); MEAN CORPUSCULAR HGB CONC 29.7 g/dl (33.0-37.0); PLATELET COUNT AUTOMATED 424 10*3/uL (130-400); RED BLOOD COUNT 4.93 10*6/uL (4.50-5.90); RED CELL DISTRI WIDTH 17.7 % (0-14.5); WHITE BLOOD COUNT 13.4 10*3/uL (4.8-10.8)
[2017-08-07 07:09] LABS: TOTAL CELLS COUNTED 100 #CELLS
[2017-08-07 07:10] LABS: BURR CELLS FEW; PLATELET SUFFICIENCY HIGH (NORMAL); POLYCHROMASIA SLIGHT
[2017-08-08] VITALS (9 sets, daily range): BP systolic 64–135; BP diastolic 32–73
[2017-08-08 03:39] LABS: HEMATOCRIT 40.2 % (42.0-52.0); HEMOGLOBIN 12.2 g/dl (14.0-18.0); MEAN CELL VOLUME 78.4 fl (80.0-94.0); MEAN CORPUSCULAR HGB 23.8 pg (27.0-31.0); MEAN CORPUSCULAR HGB CONC 30.3 g/dl (33.0-37.0); MEAN PLATELET VOLUME 9.4 fl (9.6-12.3); PLATELET COUNT AUTOMATED 452 10*3/uL (130-400); RED BLOOD COUNT 5.13 10*6/uL (4.50-5.90); RED CELL DISTRI WIDTH 17.6 % (0-14.5); WHITE BLOOD COUNT 19.6 10*3/uL (4.8-10.8)
[2017-08-08 03:57] LABS: ALBUMIN 2.9 gm/dl (3.1-4.5); ALKALINE PHOSPHATASE 90 U/L (45-117); BUN 33 mg/dl (7-24); CHLORIDE 100 mmol/L (98-107); CREATININE 1.41 mg/dL (0.70-1.30); SGOT/AST 19 IU/L (3-35); SGPT/ALT 26 U/L (12-78); SODIUM 139 mmol/L (136-145); TOTAL PROTEIN 6.4 gm/dL (6.4-8.2)
[2017-08-08 03:59] LABS: PLATELET SUFFICIENCY NORMAL (NORMAL); TOTAL CELLS COUNTED 100 #CELLS
[2017-08-08 04:00] LABS: TROPONIN I < 0.015 ng/ml (<0.045)
[2017-08-08 04:52] LABS: ABG BASE EXCESS 3.3 mmol/L (-2.0-2.0); ABG HCO3 27.6 mmol/l (22-26); ABG O2 SATURATION 95.5 % (95-97); ARTERIAL BLOOD GAS PCO2 41.7 mmHg (35-45); ARTERIAL BLOOD GAS PH 7.434 (7.35-7.45); ARTERIAL BLOOD GAS PO2 73.4 mmHg (80-90)
[2017-08-09] VITALS: BP 148/55
[2017-08-09 04:00] VITALS: BP 138/70
[2017-08-09 05:28] LABS: HEMATOCRIT 39.5 % (42.0-52.0); HEMOGLOBIN 11.9 g/dl (14.0-18.0); MEAN CELL VOLUME 78.5 fl (80.0-94.0); MEAN CORPUSCULAR HGB 23.7 pg (27.0-31.0); MEAN CORPUSCULAR HGB CONC 30.1 g/dl (33.0-37.0); MEAN PLATELET VOLUME 9.6 fl (9.6-12.3); PLATELET COUNT AUTOMATED 425 10*3/uL (130-400); RED BLOOD COUNT 5.03 10*6/uL (4.50-5.90); RED CELL DISTRI WIDTH 17.5 % (0-14.5)
[2017-08-09 05:44] LABS: ALBUMIN 2.9 gm/dl (3.1-4.5); ALKALINE PHOSPHATASE 87 U/L (45-117); BUN 26 mg/dl (7-24); CHLORIDE 101 mmol/L (98-107); CREATININE 1.19 mg/dL (0.70-1.30); POTASSIUM 4.1 mmol/L (3.5-5.1); SGOT/AST 13 IU/L (3-35); SGPT/ALT 23 U/L (12-78); SODIUM 139 mmol/L (136-145); TOTAL PROTEIN 6.3 gm/dL (6.4-8.2)
[2017-08-09 05:53] LABS: TOTAL CELLS COUNTED 100 #CELLS
[2017-08-09 05:54] LABS: BURR CELLS FEW; PLATELET SUFFICIENCY HIGH (NORMAL); POLYCHROMASIA SLIGHT
[2017-08-09 08:00] VITALS: BP 140/70
[2017-08-09 11:26] VITALS: BP 120/60
[2017-08-09 16:00] VITALS: BP 112/64
[2017-08-09 20:00] VITALS: BP 102/60
[2017-08-10] VITALS: BP 120/70
[2017-08-10 04:00] VITALS: BP 120/70
[2017-08-10 04:40] LABS: HEMATOCRIT 36.1 % (42.0-52.0); HEMOGLOBIN 11.1 g/dl (14.0-18.0); MEAN CELL VOLUME 77.8 fl (80.0-94.0); MEAN CORPUSCULAR HGB 23.9 pg (27.0-31.0); MEAN CORPUSCULAR HGB CONC 30.7 g/dl (33.0-37.0); MEAN PLATELET VOLUME 9.7 fl (9.6-12.3); NUCLEATED RED BLOOD CELL 0.1 % (0.0-0.0); PLATELET COUNT AUTOMATED 399 10*3/uL (130-400); RED BLOOD COUNT 4.64 10*6/uL (4.50-5.90); RED CELL DISTRI WIDTH 17.7 % (0-14.5); WHITE BLOOD COUNT 28.9 10*3/uL (4.8-10.8)
[2017-08-10 05:07] LABS: ALBUMIN 2.5 gm/dl (3.1-4.5); ALKALINE PHOSPHATASE 79 U/L (45-117); BUN 28 mg/dl (7-24); CHLORIDE 100 mmol/L (98-107); CREATININE 1.15 mg/dL (0.70-1.30); POTASSIUM 4.1 mmol/L (3.5-5.1); SGOT/AST 25 IU/L (3-35); SGPT/ALT 22 U/L (12-78); SODIUM 140 mmol/L (136-145); TOTAL PROTEIN 5.9 gm/dL (6.4-8.2)
[2017-08-10 05:23] LABS: PLATELET SUFFICIENCY NORMAL (NORMAL); TOTAL CELLS COUNTED 100 #CELLS
[2017-08-10 05:25] LABS: OVALOCYTES FEW
[2017-08-10 08:00] VITALS: BP 138/70
[2017-08-10 12:00] VITALS: BP 122/60
== END 2017-08-10 13:30 | DRG 871 ==
LOC: ED 15:08 → ICCU 16:43 → EDHOLD 16:43 → ICCU 17:14 → 4E 08-07 18:19 → ICCU 08-08 03:19
PROVIDERS: Internal Medicine; Internal Medicine Critical Care Medicine; Nurse Practitioner Family
PROC: 5A09357 Assistance with Respiratory Ventilation, Less than 24 Consecutive Hours, Continuous Positive Airway Pressure (ICD-10-PCS; principal; 2017-08-04)
PROC: 5A09357 Assistance with Respiratory Ventilation, Less than 24 Consecutive Hours, Continuous Positive Airway Pressure (ICD-10-PCS; 2017-08-05)
PROC: 5A09357 Assistance with Respiratory Ventilation, Less than 24 Consecutive Hours, Continuous Positive Airway Pressure (ICD-10-PCS; 2017-08-09)
PROC: 5A09357 Assistance with Respiratory Ventilation, Less than 24 Consecutive Hours, Continuous Positive Airway Pressure (ICD-10-PCS; 2017-08-10)
DX: A41.9 Sepsis, unspecified organism (principal); J96.21 Acute and chronic respiratory failure with hypoxia; E11.22 Type 2 diabetes mellitus with diabetic chronic kidney disease; J96.22 Acute and chronic respiratory failure with hypercapnia; I13.0 Hypertensive heart and chronic kidney disease with heart failure and stage 1 through stage 4 chronic kidney disease, or unspecified chronic kidney disease; I25.810 Atherosclerosis of coronary artery bypass graft(s) without angina pectoris; J44.0 Chronic obstructive pulmonary disease with (acute) lower respiratory infection; J44.1 Chronic obstructive pulmonary disease with (acute) exacerbation; L03.116 Cellulitis of left lower limb; L03.115 Cellulitis of right lower limb; I48.0 Paroxysmal atrial fibrillation; I50.9 Heart failure, unspecified; N18.3 Chronic kidney disease, stage 3 (moderate); D50.9 Iron deficiency anemia, unspecified; G47.33 Obstructive sleep apnea (adult) (pediatric); E78.5 Hyperlipidemia, unspecified; J20.9 Acute bronchitis, unspecified; Z96.643 Presence of artificial hip joint, bilateral; R65.20 Severe sepsis without septic shock; K21.9 Gastro-esophageal reflux disease without esophagitis; J84.10 Pulmonary fibrosis, unspecified; I25.5 Ischemic cardiomyopathy; E66.9 Obesity, unspecified; Z68.31 Body mass index [BMI] 31.0-31.9, adult; Z88.8 Allergy status to other drugs, medicaments and biological substances; Z99.89 Dependence on other enabling machines and devices; Z88.6 Allergy status to analgesic agent; Z87.01 Personal history of pneumonia (recurrent); Z95.1 Presence of aortocoronary bypass graft; Z87.891 Personal history of nicotine dependence; Z82.49 Family history of ischemic heart disease and other diseases of the circulatory system; Z82.3 Family history of stroke; Z83.3 Family history of diabetes mellitus; Z79.899 Other long term (current) drug therapy; Z79.4 Long term (current) use of insulin